=== PATIENT | female | born 1940 | race Caucasian/White ===

== ENCOUNTER 2025-05-05 12:41 | Inpatient (IN) | payer OTHER, SELFPAY ==
[2025-05-04 19:42] VITALS: BP 147/66
[2025-05-04 20:01] LABS: % Basophils 0.3 % (0-2); % Eosinophils 1.9 % (0-6); % Immature Granulocytes 0.3 % (0-0.5); % Lymphocytes 20.5 % (20.5-51.1); % Monocytes 8.8 % (1.7-9.3); % Neutrophils 68.2 % (42.2-75.2); Absolute Eosinophils 0.1 10^3/uL (0-0.7); Absolute Lymphocytes 1.4 10^3/uL (1.2-3.4); Absolute Monocytes 0.6 10^3/uL (0.1-0.6); Absolute Neutrophils 4.7 10^3/uL (1.4-6.5); Hemoglobin 11.3 g/dL (12.0-16.0); Mean Corp Hgb Conc. 33.2 g/dL (33.0-37.0); Mean Corpuscular Hgb 28.8 pg (27.0-31.0); Mean Corpuscular Volume 86.5 fL (81.0-99.0); Mean Platelet Volume 8.7 fL (7.4-10.4); Nucleated Red Blood Cells % 0 %; Platelet Count 277 10^3/uL (130-400); Red Blood Cell Count 3.93 10^6/uL (4.20-5.40); Red Cell Dist. Width 12.8 % (11.5-14.5); White Blood Cell Count 6.9 10^3/uL (4.8-10.8)
[2025-05-04 20:07] LABS: Erythrocyte Sed Rate 70 mm/hour (0-20)
[2025-05-04 20:22] LABS: Blood Urea Nitrogen 34 mg/dl (7-17); Calcium 9.5 mg/dl (8.4-10.2); Carbon Dioxide 28 mmol/L (22-30); Chloride 104 mmol/L (98-107); Glucose 148 mg/dl (70-99); Potassium 4.1 mmol/L (3.5-5.1); Sodium 140 mmol/L (135-145); eGFR 54.87
--- NOTE | 2025-05-04 21:28 | ED.GENMED ---
History of Present Illness
<Nitin Rodas PA-C - Last Filed: 05/05/25 02:08>
General
Chief Complaint: Musculo-Skeletal Complaint
Time Seen by Provider: 05/04/25 20:52
History of Present Illness
History of Present Illness:
84-year-old female with history of hypertension presents for evaluation of redness to the left fourth digit now spreading to the hand for the past 2 days. Denies known trauma but does admit to doing yard work and digging in soil prior to the onset
of symptoms. No fevers or chills.
Review of Systems
<DAVIDSON Hernandez Last Filed: 05/05/25 02:08>
Review of Systems
Allergies reviewed?: Yes
All Other Systems: ROS reviewed and negative except as documented in HPI and ROS
Phy Exam
<DAVIDSON Hernandez Last Filed: 05/05/25 02:08>
Physical Exam
Physical Exam:
GEN: Well appearing, NAD, WDWN
HEENT: Oral mucosa moist, no scleral icterus
Cardiac: Regular rate
Lung: No respiratory distress, no tachypnea
MSK: Swelling of the left proximal fourth digit extending to the dorsum of the left hand crossing the MCP joint, there is no pain with passive range of motion at the MCP joint, no lymphangitis
Skin: Good color, no pallor or jaundice, no rashes
Neuro: AO x3, moves all extremities freely
Psych: Calm, cooperative
Course
<DAVIDSON Hernandez Last Filed: 05/05/25 02:08>
Orders/Labs/Results
Orders:
Orders
05/04/25 19:48
CR Hand - Left Min 3 Views Urgent
Comment:
Reason For Exam: L 4th finger swelling, hand swelling/redness
05/04/25 19:53
Basic Metabolic Panel Urgent
C-Reactive Protein Urgent
Complete Blood Count/With Diff Urgent
Erythrocyte Sed Rate Urgent
05/04/25 21:28
CeFAZolin 2 GRAM [Ancef] 2 grams in 10 ml IV NOW
05/04/25 22:19
Admit/Transfer Patient As Directed
Co-Sign Provider:
Level of Care: Observation services
Assign to:: Medical/Surgical
Physician / Group: Barry Thornton
Diagnosis: cellulitis of left 4th digit and dorsal hand
PRN Pain Medication Management As Directed
May give lesser potent ordered pain med per pt: Yes
preference::
Protocol:: Medication orders for pain may be administered in a
manner that supports deferring to patient preference
when the pt is:
- Requesting an ordered lesser potent pain medication.
Least to most potent pain medications are defined
as: acetaminophen < NSAID < tramadol < opioids
(morphine, oxycodone, hydromorphone).
- Requesting a lesser dose of the same medication IF
ORDERED.
- Requesting a less intrusive route of administration
if both routes are prescribed by the provider (PO <
IV).
05/04/25 22:20
Code Status As Directed
Resuscitation Status: Do not resuscitate
Reached after discussion with pt or family/Healthcare POA: Yes
Decision communicated with: patient and DIL
DNR Bracelet Application ONCE
05/04/25 23:00
Flush (0.9% Sodium Chloride) [Flush (Nss)] See Dose Instructions IV PER PROTOCOL
05/05/25 00:54
Acetaminophen [Tylenol] 650 mg PO Q4HPRN PRN
Albuterol [ProAIR HFA INHALER] 2 puff INH R Q6HPRN PRN wheezing/SOB
Heparin 5,000 units SC Q8
Melatonin 5 mg PO HS PRN insomnia
05/05/25 00:54
Activity As Directed
Activity Level: Ambulate
Vital Signs As Directed
Frequency: Per unit guidelines
Weight As Directed
Frequency: Once
Comment: on admission
DX Deep Vein Thrombosis Video Routine
05/05/25 06:00
Basic Metabolic Panel IN AM
Complete Blood Count/No Diff IN AM
CeFAZolin 2 GRAM [Ancef] 2 grams in 10 ml IV Q8H
Levothyroxine [Synthroid] 25 mcg PO DAILY @ 0600
05/05/25 08:00
Aspirin Low Dose EC [Aspir Low (Enteric Coated)] 81 mg PO DAILY
Cholecalciferol (Vitamin D3) [VITAMIN D3 (cholecalciferol)] 25 mcg PO DAILY
Fluticasone/Salmeterol 45/21 [Advair Hfa 45/21 Mcg Inhaler] 2 puff INH R Q12
Hydrochlorothiazide [Oretic] 25 mg PO DAILY
Valsartan [Diovan] 320 mg PO DAILY
05/05/25 Dinner
Regular
Abnormal Lab Results
05/04/25
19:53
RBC 3.93 L 10^6/uL
(4.20-5.40)
Hgb 11.3 L g/dL
(12.0-16.0)
Hct 34.0 L %
(37.0-47.0)
ESR 70 H mm/hour
(0-20)
BUN 34 H mg/dl
(7-17)
Glucose 148 H mg/dl
(70-99)
C-Reactive Protein 15.00 H mg/L
(0.0-10.00)
05/04/25 19:53
05/04/25 19:53
Vital Signs
Initial and Last Documented VS:
Initial Vital Signs
Temp Pulse Resp BP Pulse Ox
98.1 F 80 16 147/66 97
05/04/25 19:42 05/04/25 19:42 05/04/25 19:42 05/04/25 19:42 05/04/25 19:42
Last Documented Vital Signs
Temp Pulse Resp BP Pulse Ox
98.0 F 77 18 155/84 99
05/05/25 01:01 05/05/25 01:01 05/05/25 01:01 05/05/25 01:01 05/05/25 01:01
<Ramon Knott MD - Last Filed: 05/04/25 21:36>
Orders/Labs/Results
Orders:
Orders
05/04/25 19:48
CR Hand - Left Min 3 Views Urgent
Comment:
Reason For Exam: L 4th finger swelling, hand swelling/redness
05/04/25 19:53
Basic Metabolic Panel Urgent
C-Reactive Protein Urgent
Complete Blood Count/With Diff Urgent
Erythrocyte Sed Rate Urgent
05/04/25 21:28
CeFAZolin 2 GRAM [Ancef] 2 grams in 10 ml IV NOW
05/04/25 22:19
Admit/Transfer Patient As Directed
Co-Sign Provider:
Level of Care: Observation services
Assign to:: Medical/Surgical
Physician / Group: Barry Thornton
Diagnosis: cellulitis of left 4th digit and dorsal hand
PRN Pain Medication Management As Directed
May give lesser potent ordered pain med per pt: Yes
preference::
Protocol:: Medication orders for pain may be administered in a
manner that supports deferring to patient preference
when the pt is:
- Requesting an ordered lesser potent pain medication.
Least to most potent pain medications are defined
as: acetaminophen < NSAID < tramadol < opioids
(morphine, oxycodone, hydromorphone).
- Requesting a lesser dose of the same medication IF
ORDERED.
- Requesting a less intrusive route of administration
if both routes are prescribed by the provider (PO <
IV).
05/04/25 22:20
Code Status As Directed
Resuscitation Status: Do not resuscitate
Reached after discussion with pt or family/Healthcare POA: Yes
Decision communicated with: patient and DIL
DNR Bracelet Application ONCE
05/04/25 23:00
Flush (0.9% Sodium Chloride) [Flush (Nss)] See Dose Instructions IV PER PROTOCOL
05/05/25 00:54
Acetaminophen [Tylenol] 650 mg PO Q4HPRN PRN
Albuterol [ProAIR HFA INHALER] 2 puff INH R Q6HPRN PRN wheezing/SOB
Heparin 5,000 units SC Q8
Melatonin 5 mg PO HS PRN insomnia
05/05/25 00:54
Activity As Directed
Activity Level: Ambulate
Vital Signs As Directed
Frequency: Per unit guidelines
Weight As Directed
Frequency: Once
Comment: on admission
DX Deep Vein Thrombosis Video Routine
05/05/25 06:00
Basic Metabolic Panel IN AM
Complete Blood Count/No Diff IN AM
CeFAZolin 2 GRAM [Ancef] 2 grams in 10 ml IV Q8H
Levothyroxine [Synthroid] 25 mcg PO DAILY @ 0600
05/05/25 08:00
Aspirin Low Dose EC [Aspir Low (Enteric Coated)] 81 mg PO DAILY
Cholecalciferol (Vitamin D3) [VITAMIN D3 (cholecalciferol)] 25 mcg PO DAILY
Fluticasone/Salmeterol 45/21 [Advair Hfa 45/21 Mcg Inhaler] 2 puff INH R Q12
Hydrochlorothiazide [Oretic] 25 mg PO DAILY
Valsartan [Diovan] 320 mg PO DAILY
05/05/25 Dinner
Regular
Abnormal Lab Results
05/04/25
19:53
RBC 3.93 L 10^6/uL
(4.20-5.40)
Hgb 11.3 L g/dL
(12.0-16.0)
Hct 34.0 L %
(37.0-47.0)
ESR 70 H mm/hour
(0-20)
BUN 34 H mg/dl
(7-17)
Glucose 148 H mg/dl
(70-99)
C-Reactive Protein 15.00 H mg/L
(0.0-10.00)
05/04/25 19:53
05/04/25 19:53
Vital Signs
Initial and Last Documented VS:
Initial Vital Signs
Temp Pulse Resp BP Pulse Ox
98.1 F 80 16 147/66 97
05/04/25 19:42 05/04/25 19:42 05/04/25 19:42 05/04/25 19:42 05/04/25 19:42
Last Documented Vital Signs
Temp Pulse Resp BP Pulse Ox
98.0 F 77 18 155/84 99
05/05/25 01:01 05/05/25 01:01 05/05/25 01:01 05/05/25 01:01 05/05/25 01:01
<Nitin Rodas PA-C - Last Filed: 05/05/25 02:08>
MDM/Problems Addressed
MDM/Problems Addressed:
Patient has no fever or leukocytosis, patient's son is an internal medicine physician and is adamant that the patient be admitted for IV antibiotics
<Nitin Rodas PA-C - Last Filed: 05/05/25 02:08>
*Critical Care Note
Total Time (30-74mins, 75-104mins- exclusive of procedures): Not Applicable
ED Attending Note
<Nitin Rodas PA-C - Last Filed: 05/05/25 02:08>
-
Portions of this chart may have been created with voice recognition software.� Occasional wrong word or��sound alike� substitutions may have occurred due to the inherent limitations of voice recognition software.
<Ramon Knott MD - Last Filed: 05/04/25 21:36>
ED Attending Note
Patient seen and examined by attending physician: Yes
I performed the substantive portion of visit, reviewed & personally made and approve the management plan that is documented in note by myself or DAMARIS.: Yes
ED Attending Note:
I have seen and evaluated the patient with a [id number] encounter. I have spoken to the [DAMARIS] and involved in the medical history, the physical exam, medical decision making.
Evaluation and management service: agree unless noted differently below.
Results interpretation: agree unless noted differently below.
84-year-old woman presenting to the emergency department skin infection. Patient states that a few days ago she was gardening. Yesterday noticed some redness to her left fourth finger. This morning it spread down to her hand. Mild swelling. No
numbness tingling. No weakness. No fevers or chills. During my evaluation patient does have some mild erythema at the proximal phalanx of the left fourth finger and at the distal dorsal aspect of the hand. No fluctuance. No tenderness to the
flexor tendon sheath. Normal strength. Normal cap refill. Blood work is notable for normal white count. She is afebrile here. After shared decision making we will admit for IV antibiotics/observation for progression.
Discharge Plan
Departure
Patient Disposition: Admit
Date of Disposition: 05/04/25
Time of Disposition: 21:31
Admit to: Med/Surg
Presentation/result/management discussed w/ accepting MD/DO: Hospitalist
Discharge Problem:
Cellulitis of hand, left
Interventions
Interventions:
*Risk Screen - Suicide Last Done: 05/04/25 19:42
*General Assessment Last Done: 05/04/25 19:42
*Neglect/Abuse Screening Last Done: 05/04/25 19:42
*ED- Fall Risk Assessment Last Done: 05/04/25 21:36
*ED COVID-19 Vaccine History Last Done: 05/04/25 21:36
*Nursing Disposition Last Done: 05/05/25 00:05
ED-Musculoskeletal Assessment Last Done: 05/04/25 21:36
Discharge Date and Time
Discharge Date/Time: 05/05/25 00:51
[2025-05-04 21:35] VITALS: BMI 29.1
[2025-05-04] MEDS: ANCEF 10 IV (21:39)
--- NOTE | 2025-05-04 21:42 | HPS.HSE ---
Addendum entered and electronically signed by Barry Thornton DO 05/04/25 22:46:
Patient seen and examined independently. Agree with findings and plan as set forth by SUZANNE Boyd.
Patient is an 84y F with PMH significant for hypertension and hypothyroidism who presents to ED complaining of L 4th finger swelling and redness x 2-3 days. Symptoms started on Monday. Since that time she has noted progression of the swelling /
redness from the proximal phalanx of the 4th finger into the dorsum of the hand. No systemic symptoms such as fevers / chills, N/V/D, etc. No noted injury or trauma.
Patient has significant arthritis / associated deformities of the digits; but, denies any prior inflammatory arthritis symptoms.
Ass:
L Hand Cellulitis
Arthritis
Benign Hypertension
Hypothyroidism
Asthma without Acute Exacerbation
OAB
Plan:
Observe overnight for further evaluation and treatment.
Continue IV Ancef for now.
Change to PO regimen once evident improvement in symptoms is appreciated.
Monitor for any new / worsening symptoms, fevers or other systemic symptoms.
Continue usual outpatient med regimen.
Original Note:
Family Physician
-
Family Physician: NOT KNOW UNKNOWN - PT DOES
Chief Complaint
-
left hand 4th digit erythema
History of Present Illness
Patient is a 84-year-old female with past medical history significant for hypertension, hypothyroid and asthma who presented to [facility] for evaluation of left hand 4th digit erythema. Patient states that erythema and edema on left 4th digit started
Monday and has since had some spread to the dorsal hand and proximal area of 5th digit. Patient denies any fever, chills, cough, shortness of breath, chest pain, nausea, vomiting, constipation, diarrhea or urinary symptoms.
Medical History
Past Medical History
Past Medical History: Reports Other
Additional Past Medical History:
hypertension
hypothyroid
asthma
overactive bladder
Past Surgical History: Reports Other
Additional Past Surgical History:
bilateral cataract extraction 2022
breast reduction 2002
lumpectomy 2012
Social History
Tobacco: Non-smoker
Family History
Family History: Other (Father (): multiple myeloma; Mother (): dementia)
Allergies / Home Medications
Allergies reflects when Allergies were last updated in [facility].
Home Medications with original date entered in [facility]
Allergy/Medication List:
Allergies
Allergy/AdvReac Type Severity Reaction Status Date / Time
lisinopril Allergy Unknown Verified 05/04/25 19:42
Home Medications
albuterol sulfate 90 mcg/actuation aerosol inhaler 2 puff inhalation Q6H PRN wheezing/SOB 05/04/25
aspirin 81 mg tablet,delayed release 81 mg PO DAILY 05/04/25
cholecalciferol (vitamin D3) 25 mcg (1,000 unit) tablet (Vitamin D3) 25 mcg PO DAILY 05/04/25
fluticasone 100 mcg-salmeterol 50 mcg/dose blistr powdr for inhalation (Wixela Inhub) 1 inh inhalation Q12H 05/04/25
hydrochlorothiazide 25 mg tablet 25 mg PO DAILY 05/04/25
levothyroxine 25 mcg tablet 25 mcg PO DAILY 05/04/25
melatonin 5 mg tablet 5 mg PO HS PRN insomnia 05/04/25
valsartan 320 mg tablet 320 mg PO DAILY 05/04/25
Review of Systems
-
History Source: Patient
Musculoskeletal: Reports Joint Pain and Joint Swelling (left 4th digit erythema and edema traveling to dorsal hand )
Physical Exam
Vital Signs
Vital Signs
Temp Pulse Resp BP Pulse Ox
98.1 F 80 16 147/66 97
05/04/25 19:42 05/04/25 19:42 05/04/25 21:36 05/04/25 19:42 05/04/25 19:42
Physical Exam
General: Well Developed, Well Nourished, No Apparent Distress, Comfortable and Conversant
HEENT: NormoCephalic, Moist mucous membranes, Atraumatic, [place] Conjunctivae, Nose Appears Normal and Ears Appear Normal
Respiratory: Clear and Non Labored Respirations
Cardiac: S1/S2 and Regular Rhythm
Breast: Deferred by me
GI: Soft, Non Tender, Non Distended and Normal Bowel Sounds; No Organomegaly
Rectal: Deferred by Provider
Genito-urinary: Deferred by me
Musculoskeletal: No Clubbing, No Cyanosis and No Edema
Skin: Warm, IV/Catheter Site and Other (erythema and mild edema to proximal left 4th digit and dorsal hand )
Neuro: Awake, Alert, AO x 3 and Nonfocal/grossly intact
Psych: Calm and Intact Judgment/Insight
Laboratory Results
-
05/04/25 19:53
05/04/25 19:53
Data Reviewed
-
Diagnostic Radiology: Report Reviewed by me (Lt hand: Moderate osteoarthritis as described above. Soft tissue swelling of all digits as described above. No acute fractures noted. Probable chronic mild subluxations of the third through fifth MCP
joints. Mild chondrocalcinosis of the medial wrist. Mild bony demineralization.)
Lab Data: Labs Reviewed by me (BUN 34, Creat 1.0, eGFR 54.87)
Impression/Plan
-
IMPRESSION/PLAN:
#left hand cellulitis
WBC 6.9, Neut 68.2
Lt hand x-ray: Moderate osteoarthritis as described above.
Soft tissue swelling of all digits as described above.
No acute fractures noted.
Probable chronic mild subluxations of the third through fifth MCP joints.
Mild chondrocalcinosis of the medial wrist.
Mild bony demineralization.
- admit to med/surg
- IV cefazolin
- supportive care
#hypertension
- continue hydrochlorothiazide
#hypothyroid
- continue levothyroxine
#asthma
- continue albuterol PRN and Wixela
#overactive bladder
- takes oxybutynin but dose not recall dosing, pharmacy can confirm tomorrow and place orders.
Code status: DNR
DVT prophylaxis: heparin sq
[2025-05-05 00:05] VITALS: BP 136/60
--- NOTE | 2025-05-05 00:50 | PTCARENOTE ---
Pt arrived from ED via stretcher. aaox3, cooperative. oob with minimal assistance to stretcher. c/o mild L hand pain. L 4th finger red and warm to touch. Medicated with prn tylenol. oriented to room. call bolanos within reach.
[2025-05-05 00:58] VITALS: BMI 30.7
[2025-05-05 01:01] VITALS: BP 155/84
[2025-05-05] MEDS: TYLENOL 650 MG PO ×2 (01:15→23:09)
[2025-05-05] MEDS: HEPARIN 5000 UNITS SC ×4 (01:16→23:00)
[2025-05-05] MEDS: MELATONIN 5 MG PO (01:16)
[2025-05-05] MEDS: SYNTHROID 25 MCG PO (05:56)
[2025-05-05] MEDS: ANCEF 10 IV ×3 (05:56→22:57)
[2025-05-05 07:00] VITALS: BP 128/61
[2025-05-05 07:36] LABS: Hematocrit 32.5 % (37.0-47.0); Hemoglobin 10.7 g/dL (12.0-16.0); Mean Corp Hgb Conc. 32.9 g/dL (33.0-37.0); Mean Corpuscular Hgb 28.8 pg (27.0-31.0); Mean Corpuscular Volume 87.6 fL (81.0-99.0); Mean Platelet Volume 8.8 fL (7.4-10.4); Platelet Count 266 10^3/uL (130-400); Red Blood Cell Count 3.71 10^6/uL (4.20-5.40); Red Cell Dist. Width 12.8 % (11.5-14.5); White Blood Cell Count 5.7 10^3/uL (4.8-10.8)
[2025-05-05] MEDS: ADVAIR HFA 45/21 MCG INHALER 2 PUFF INH ×2 (07:39→20:07)
[2025-05-05 08:13] LABS: Blood Urea Nitrogen 30 mg/dl (7-17); Calcium 9.4 mg/dl (8.4-10.2); Carbon Dioxide 29 mmol/L (22-30); Chloride 106 mmol/L (98-107); Estimated Creatinine Clearance 51 ml/min; Glucose 94 mg/dl (70-99); Sodium 141 mmol/L (135-145); eGFR > 60.00
[2025-05-05] MEDS: VITAMIN D3 (cholecalciferol) 25 MCG PO (08:28)
[2025-05-05] MEDS: ASPIR LOW (ENTERIC COATED) 81 MG PO (08:28)
[2025-05-05] MEDS: DIOVAN 320 MG PO (08:28)
[2025-05-05] MEDS: ORETIC 25 MG PO (08:28)
--- NOTE | 2025-05-05 12:07 | W.PN.HOSP.TC ---
Today's Communication/Plan
-
Continue with cefazolin
Add vancomycin
If spikes fever check blood cultures
Will ask orthopedic for input
Ice pack for edema
Assessment / Plan
Assessment / Plan
General: Well Developed, Well Nourished, No Apparent Distress, Comfortable and Conversant
HEENT: NormoCephalic, Moist mucous membranes, Atraumatic, [place] Conjunctivae, Nose Appears Normal and Ears Appear Normal
Respiratory: Clear and Non Labored Respirations
Cardiac: S1/S2 and Regular Rhythm
GI: Soft, Non Tender, Non Distended and Normal Bowel Sounds; No Organomegaly
Musculoskeletal: No Clubbing, No Cyanosis and No Edema
Skin: Warm, IV/Catheter Site and Other (erythema and mild edema to proximal left 4th digit and dorsal hand )
Neuro: Awake, Alert, AO x 3 and Nonfocal/grossly intact
Psych: Calm and Intact Judgment/Insight
#left hand cellulitis with severe swelling of the MCP and PIP joint of fourth digit concern for possible flexor tenosynovitis in the setting of rheumatoid arthritis
Lt hand x-ray: Moderate osteoarthritis as described above.
Soft tissue swelling of all digits as described above.
No acute fractures noted.
Probable chronic mild subluxations of the third through fifth MCP joints.
Mild chondrocalcinosis of the medial wrist.
Mild bony demineralization.
- IV cefazolin we will add vancomycin. ESR and CRP were elevated. Repeat labs in the morning.
- supportive care
- Ice pack for swelling. Pain control.
- Will ask orthopedic for input
#hypertension
- continue hydrochlorothiazide
#hypothyroid
- continue levothyroxine
#asthma
- continue albuterol PRN and Wixela
#overactive bladder
- takes oxybutynin but dose not recall dosing, pharmacy can confirm tomorrow and place orders.
Code status: DNR
DVT prophylaxis: heparin sq
Anticipated Discharge: > 48 hours
Subjective/Interval History
-
Date of Service: May 05, 2025
States some mild improvement in erythema
States remains with joint pain and swelling on the fingers
Pain with flexion and extension of the left fourth digit
Denies any trauma to the left hand. Denies any open wound to the left hand
Objective Data
-
Labs:
Laboratory Results
05/05/25
07:21
WBC 5.7
Hgb 10.7 L
Hct 32.5 L
Plt Count 266
Sodium 141
Potassium 4.0
Chloride 106
Carbon Dioxide 29
BUN 30 H
Creatinine 0.7
Glucose 94
Calcium 9.4
Vital Signs:
Vital Signs
Temp Pulse Resp BP Pulse Ox
97.5 F 81 14 128/61 98
05/05/25 07:00 05/05/25 07:42 05/05/25 07:42 05/05/25 07:00 05/05/25 07:42
Data Reviewed
-
Total Time Spent with Patient (in minutes): 56
--- NOTE | 2025-05-05 12:20 | CM ---
CM reviewed chart, patient seen bedside, initial assessment completed. Patient reside wit her son, daughter in law, daughter in laws mother, and grandson in a multiple story home, two steps to enter, with grab bars. Patient reports having multiple
canes in the home, wheelchair for longer distances. Patient denies VN/SNF history. Patient confirms PCP Florinda Lopez, pharmacy [facility], confirms prescription coverage. Patient denies insecurities at home. [facility] form verbally reviewed, provided
with copy, placed on chart. CM will continue to follow for all discharge planing needs.
Plan; home with family, watch for potential VN needs
--- NOTE | 2025-05-05 12:35 | PHA.VAN.IN ---
Assessment
- Assessment
Renal Function: Unknown baseline
Concomitant Antimicrobials: cefazolin
AUC Dosing Plan
- Dosing Variables
Dosing Weight (kg): 71
Dosing CrCl (ml/min): 51
Vd coefficient (L/kg): 0.7
- Empiric Dosing
Initial / Loading Dose: 1750 mg x1
Maintenance Regimen: 1000 mg IV Q24H
Estimated AUC (mcg*h/mL): 441
Estimated Peak (mcg*h/mL): 29.8
Estimated Trough (mcg/ml): 10.2
Estimated Half Life (H): 14.8
- Monitoring
No levels ordered at this time: Consider levels once steady state achieved on current regimen
Pharmacokinetics Vancomycin I
- -
Patient Age: 84
Patient Sex: Female
Vancomycin Day #: 1
Indication: Skin And Soft Tissue (L 4th finger swelling and redness)
Requesting Provider: Flora
Pertinent Antimicrobial Allergies:
No pertinent allergies to ABX
Height / Weight:
Height 5 ft
Actual Weight 71.214 kg
IBW in k.5
Adjusted BW in k.8
- Vital Signs / Lab Results
Temp Pulse Resp BP Pulse Ox
97.5 F 81 14 128/61 98
05/05/25 07:00 05/05/25 07:42 05/05/25 07:42 05/05/25 07:00 05/05/25 07:42
Lab Results - Hematology
05/04/25 05/05/25
19:53 07:21
WBC 6.9 5.7
Lab Results - Chemistry
05/04/25 05/05/25
19:53 07:21
BUN 34 H 30 H
Creatinine 1.0 0.7
Estimated Creat Clear 51
[2025-05-05] MEDS: VANCOCIN 535 MG IV (14:23)
[2025-05-05 15:09] VITALS: BP 140/75
[2025-05-05 23:50] VITALS: BP 129/74
[2025-05-06] MEDS: VANCOCIN 200 IV (05:22)
[2025-05-06] MEDS: ANCEF 10 IV ×2 (05:23→14:53)
[2025-05-06] MEDS: SYNTHROID 25 MCG PO (05:23)
--- NOTE | 2025-05-06 07:26 | W.PN.UPDATE ---
Update Note
Progress Note Update
Full consult dictated. 84 yo female with history of arthritis of her hands was admitted Monday night with erythema and swelling of her left 4th PIP joint. She reported no fevers and WBC was normal. She has been on IV antibiotics for 36 hours and
is not worsening but not improving. She reports decreased ROM and tenderness. She denies similar episodes and denies history of gout. Exam reveals mild erythema and swelling about the dorsum of the PIP joint and proximal to the MCP joints of the
middle, finger and small fingers. No evidence for flexor tenosynovitis. NVI distally. ROM slightly decreased compared to her opposite hand. Xrays with severe arthritic changes. WBC normal. ESR elevated. Plan: I have discussed with Dr. Mazariegos
who will see the patient today. Doubt surgical intervention necessary at this time but will await Dr. Villatoro recommendation. May be pseudogout. Continue IV antibiotics for now.
[2025-05-06 07:40] VITALS: BP 144/70
[2025-05-06 07:40] LABS: % Basophils 0.3 % (0-2); % Eosinophils 1.6 % (0-6); % Immature Granulocytes 0.3 % (0-0.5); % Lymphocytes 17.8 % (20.5-51.1); % Monocytes 8.7 % (1.7-9.3); % Neutrophils 71.3 % (42.2-75.2); Absolute Eosinophils 0.1 10^3/uL (0-0.7); Absolute Lymphocytes 1.4 10^3/uL (1.2-3.4); Absolute Monocytes 0.7 10^3/uL (0.1-0.6); Absolute Neutrophils 5.5 10^3/uL (1.4-6.5); Hematocrit 34.6 % (37.0-47.0); Hemoglobin 11.4 g/dL (12.0-16.0); Mean Corp Hgb Conc. 32.9 g/dL (33.0-37.0); Mean Corpuscular Hgb 28.7 pg (27.0-31.0); Mean Corpuscular Volume 87.2 fL (81.0-99.0); Mean Platelet Volume 8.7 fL (7.4-10.4); Nucleated Red Blood Cells % 0 %; Platelet Count 285 10^3/uL (130-400); Red Blood Cell Count 3.97 10^6/uL (4.20-5.40); Red Cell Dist. Width 12.7 % (11.5-14.5); White Blood Cell Count 7.7 10^3/uL (4.8-10.8)
[2025-05-06] MEDS: ADVAIR HFA 45/21 MCG INHALER 2 PUFF INH (08:11)
[2025-05-06 08:23] LABS: Blood Urea Nitrogen 24 mg/dl (7-17); Calcium 9.5 mg/dl (8.4-10.2); Carbon Dioxide 28 mmol/L (22-30); Chloride 106 mmol/L (98-107); Estimated Creatinine Clearance 51 ml/min; Glucose 94 mg/dl (70-99); Sodium 141 mmol/L (135-145); eGFR > 60.00
[2025-05-06 08:29] LABS: Erythrocyte Sed Rate 62 mm/hour (0-20)
--- NOTE | 2025-05-06 08:30 | PHA.VAN.FU ---
Vancomycin Assessment / Plan
- Assessment
Renal Function: Stable
WBC's are: Stable
In the past 24 hrs, patient has been: Afebrile
Concomitant Antimicrobials: cefazolin
- Dosing Plan
Continue: Vancomycin 1000 mg IV Q24H
- Monitoring Plan
No level(s) ordered at this time: Consider level when at steady state for current regimen
- Follow Up
Pharmacy will continue to follow.
Vancomycin Follow UP
- -
Patient Age: 84
Patient Sex: Female
Vancomycin Day #: 2
Indication: Skin And Soft Tissue (L 4th finger swelling and redness)
Requesting Provider: Flora
Pertinent Antimicrobial Allergies:
No pertinent allergies to ABX
Height / Weight:
Height 5 ft
Actual Weight 71.214 kg
IBW in k.5
Adjusted BW in k.8
- Vital Signs / Lab Results
Temp Pulse Resp BP Pulse Ox
97.4 F 68 16 144/70 98
05/06/25 07:40 05/06/25 08:16 05/06/25 08:16 05/06/25 07:40 05/06/25 08:16
Lab Results - Hematology
05/04/25 05/05/25 05/06/25
19:53 07:21 07:27
WBC 6.9 5.7 7.7
Lab Results - Chemistry
05/04/25 05/05/25 05/06/25
19:53 07:21 07:27
BUN 34 H 30 H 24 H
Creatinine 1.0 0.7 0.7
Estimated Creat Clear 51 51
[2025-05-06] MEDS: VITAMIN D3 (cholecalciferol) 25 MCG PO (08:54)
[2025-05-06] MEDS: DIOVAN 320 MG PO (08:54)
[2025-05-06] MEDS: HEPARIN 5000 UNITS SC ×2 (08:54→14:52)
[2025-05-06] MEDS: ORETIC 25 MG PO (08:54)
[2025-05-06] MEDS: ASPIR LOW (ENTERIC COATED) 81 MG PO (08:54)
--- NOTE | 2025-05-06 09:20 | W.PN.UPDATE ---
Update Note
Progress Note Update
Patient seen and examined
Left ring finger swelling, mostly around the PIP joint
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
Recommend a course of steroids.
I can see her back in the office for follow up
No surgical plans. She may resume diet.
[2025-05-06] MEDS: DELTASONE 50 MG PO (12:30)
--- NOTE | 2025-05-06 13:12 | CM ---
CM reviewed chart, patient seen bedside, upgraded to inpatient status. IMM verbally reviewed, provided with copy, placed in chart. Patient reports potential discharge today, confirms transportation home. Patient denies needs from CM at this time. CM
will continue to follow for all discharge planning needs.
Plan; home no needs
--- NOTE | 2025-05-06 13:13 | W.PN.HOSP.TC ---
Today's Communication/Plan
-
Start steroids
Outpatient orthopedic follow-up
Assessment / Plan
Assessment / Plan
General: Well Developed, Well Nourished, No Apparent Distress, Comfortable and Conversant
HEENT: NormoCephalic, Moist mucous membranes, Atraumatic, [place] Conjunctivae, Nose Appears Normal and Ears Appear Normal
Respiratory: Clear and Non Labored Respirations
Cardiac: S1/S2 and Regular Rhythm
GI: Soft, Non Tender, Non Distended and Normal Bowel Sounds; No Organomegaly
Musculoskeletal: No Clubbing, No Cyanosis and No Edema
Skin: Warm, IV/Catheter Site and Other (erythema and mild edema to proximal left 4th digit and dorsal hand )
Neuro: Awake, Alert, AO x 3 and Nonfocal/grossly intact
Psych: Calm and Intact Judgment/Insight
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
Lt hand x-ray: Moderate osteoarthritis as described above.
Soft tissue swelling of all digits as described above.
No acute fractures noted.
Probable chronic mild subluxations of the third through fifth MCP joints.
Mild chondrocalcinosis of the medial wrist.
Mild bony demineralization.
- Inflammatory markers remain elevated.
- supportive care
- Ice pack for swelling. Pain control. Will also do short course of antibiotics.
- Discussed with orthopedic Dr. Mazariegos and recommending course of steroids as high likelihood of pseudogout. Patient to follow-up in the office with Dr. Mazariegos.
#hypertension
- continue hydrochlorothiazide
#hypothyroid
- continue levothyroxine
#asthma
- continue albuterol PRN and Wixela
#overactive bladder
- takes oxybutynin but dose not recall dosing, pharmacy can confirm tomorrow and place orders.
Code status: DNR
DVT prophylaxis: heparin sq
Dispo-plan for tentative DC later today if further improvement
Anticipated Discharge: Today
Subjective/Interval History
-
Date of Service: May 06, 2025
States remains with swelling of the fourth digit PIP joint
Erythema has improved
Objective Data
-
Labs:
Laboratory Results
05/06/25
07:27
WBC 7.7
Hgb 11.4 L
Hct 34.6 L
Plt Count 285
Sodium 141
Potassium 4.0
Chloride 106
Carbon Dioxide 28
BUN 24 H
Creatinine 0.7
Glucose 94
Calcium 9.5
Vital Signs:
Vital Signs
Temp Pulse Resp BP Pulse Ox
97.4 F 68 16 144/70 98
05/06/25 07:40 05/06/25 08:16 05/06/25 08:16 05/06/25 07:40 05/06/25 08:50
I&O
05/05/25 05/06/25 05/07/25
06:59 06:59 06:59
Intake Total 1440 / 1440
Balance 1440 / 1440
--- NOTE | 2025-05-06 13:15 | W.DCSUMMARY ---
Discharge Summary
Discharge Data
Date of Admission: 05/05/25
Date of Discharge: 05/06/25
-
Pending Results: No
Hospital Course
84-year-old female past medical history of hypertension, hypothyroidism, asthma, overactive bladder was presented with complaint of left hand pain and swelling and left fourth digit PIP joint swelling. Initial concern for infection. Patient was
started on broad-spectrum IV antibiotics. Patient underwent imaging with x-ray which shows patient with severe arthritis. Patient with persistent pain and swelling. Orthopedic was consulted and hand specialist Dr. Mazariegos evaluated the patient.
Delilah mention patient likely with pseudogout. Patient also denies any prior history of gout or trauma to the hand or any open wound. Per discussion with orthopedic recommending patient to be started on steroids for pseudogout and no surgical
intervention required or drainage required. Orthopedic patient can be discharged with outpatient follow-up in office in 7 days.
Discharge Plan
-
Patient Disposition: Home with Home Care
Discharge Diagnosis/Procedures: Left hand swelling and left fourth digit swelling likely secondary to pseudogout
Condition: Fair
Diet: Regular
Activity: As tolerated
Driving Restrictions: Not until seen by your Dr
Referrals:
Fernando Mazariegos MD [Active, Orthopedics] - in one week
Referral Note: Call to make appointment
UNKNOWN - PT DOES,NOT KNOW [Family Provider]
Prescriptions:
New
cephalexin 500 mg capsule
500 mg PO Q6H 5 Days Qty: 20 0RF
prednisone 20 mg tablet
40 mg PO DAILY 7 Days Qty: 14 0RF
Continued
aspirin [Aspir-81] 81 mg Tablet,Delayed Release (Dr/Ec)
81 mg PO DAILY
levothyroxine 25 mcg Tablet
25 mcg PO DAILY
valsartan 320 mg Tablet
320 mg PO DAILY
hydrochlorothiazide 25 mg Tablet
25 mg PO DAILY
fluticasone propion-salmeterol [Wixela Inhub] 100-50 mcg/dose Blister With Device
1 inh INHALATION Q12H
albuterol sulfate 90 mcg/actuation Hfa Aerosol Inhaler
2 puff INHALATION Q6H PRN (Reason: wheezing/SOB)
cholecalciferol (vitamin D3) [Vitamin D3] 25 mcg (1,000 unit) Tablet
25 mcg PO DAILY
melatonin 5 mg Tablet
5 mg PO HS PRN (Reason: insomnia )
Discharge Date and Time
Print Language: [place]
[2025-05-06 15:00] VITALS: BP 128/75
[2025-05-06 15:42] VITALS: BP 125/69; PULSE 81
== END 2025-05-06 18:03 | disposition home or self-care (01) | DRG 554 ==
LOC: 4 WEST ACU 12:41
PROVIDERS: Nurse Practitioner Family; ADMITTING PHYSICIAN Hospitalist; ATTENDING PHYSICIAN Hospitalist; CONSULT PHYSICIAN Orthopaedic Surgery; EMERGENCY PHYSICIAN Student in an Organized Health Care Education/Training Program
DX: M11.232 Other chondrocalcinosis, left wrist (principal); I10 Essential (primary) hypertension; E03.9 Hypothyroidism, unspecified; J45.909 Unspecified asthma, uncomplicated; N32.81 Overactive bladder; R60.9 Edema, unspecified; Z66 Do not resuscitate; M79.89 Other specified soft tissue disorders
CPT/HCPCS: 73130; 80048; 85025; 85027; 85652; 86140; 94640; 96374; 97162; 99285